=== PATIENT | female | born 1935 | race Caucasian/White ===

== ENCOUNTER 2017-05-05 19:33 | Emergency (ER) | payer MEDICARE ==
[2017-05-05 19:37] VITALS: BP 199/56; PULSE 60; RESP 12; O2SAT 97
--- NOTE | 2017-05-05 19:59 | ED.REPORT ---
HPI-General Illness Date of Service May 05, 2017 ED Provider: Noel Briceño MD The patient is an 82 year old female with a history of hypertension and previous quadruple bypass who presents to the ED from [facility] following an episode of right sided, anterior chest pain that occurred this afternoon. Patient was sent to the ED following a hypertensive episode that was associated with blurry vision, SOB and chest discomfort. Her symptoms have improved upon initial examination. She denies fever, chills, nausea, or vomiting. The patient states that she is "just fine" and does not want to be here. She is accompanied by advanced directive that states DO NOT RESUSCITATE/DO NOT RESUSCITATE and comfort measures. She states that she does not want to be hospitalized, does not want to be in the emergency department, feels fine and that she requested to not be sent here and that she was sent here against her well. Her son arrives shortly after her arrival and confirms her goals of care. She demonstrates insight into her condition and is linear/organized. Nursing Notes Stated Complaint: HYPERTENSION,CHEST PAIN Chief Complaint: Chest Pain Nursing Notes Reviewed: Yes Allergies: Coded Allergies: morphine (Verified Allergy, Unknown, 05/05/17) Uncoded Allergies: HORSE EQUINE (Allergy, Unknown, 05/05/17) General Time Seen by MD: 19:58 Chief Complaint Chest pain Hx Obtained From: Patient Arrived By: Walk-in Sudden in Onset?: No Onset Occurred: 1 - 4 hours ago Symptom Duration: Since onset Location: : Chest Quality: Painful Radiation: : Does not radiate Severity: Current: Mild Severity: Maximum: Moderate Associated with: Reports: Chest pain, Shortness of breath Pertinent Negative: Pt denies other symptoms Recent Healthcare: No recent doctor visit, No recent hospitalization Past Medical History Past Medical History Notes: DNR/DNI Comfort Care measures only Past Medical History Hypertension Atrial fibrillation Past Surgical History Quadruple bypass Smoking History Unknown if Ever Smoker Social History Lives at [facility] Other Social History: Good social support, Lives in [facility] Ambulatory Status Walker Review of Systems Full Review of Systems Constitutional: Denies: Chills, Fever Respiratory: Reports: Shortness of breath Cardiovascular: Reports: Chest pain GI: Denies: Nausea, Vomiting Neurologic: Reports: Vision change Complete sys rev & neg: except as marked. Physical Exam Vital Signs Vital Signs Date Time Temp Pulse Resp B/P Pulse Ox O2 Delivery O2 Flow Rate FiO2 9/12/17 23:41 52 15 183/56 96 Room Air 05/05/17 22:59 50 16 166/46 94 Room Air 05/05/17 20:27 51 16 175/47 96 Room Air 05/05/17 19:37 36.5 60 12 199/56 97 Initial VS: Reviewed Neck: Supple, Non-tender, Full range of motion Extremities: Vascular intact, Neuro intact, No swelling, No tenderness Skin: Warm, Dry, No cyanosis Neurologic: Alert, Oriented, Nonfocal Psychiatric: Mood/affect normal, Behavior normal, Normal thought content General/Constitutional: Awake, Alert, No acute distress Head / Eyes: Atraumatic, Normocephalic, PERRL Respiratory / Chest: Atraumatic, Breath sounds NL, Breath sounds = bilat, No respiratory distress Chest Wall / Ribs: Positive: Chest tender upper R (Palpable tenderness that reproduces the pt's pain) Well healed sternotomy scar Cardiovascular: Heart rate NL, Heart sounds NL, No gallop, No murmurs, No rubs , Peripheral circulation NL, Pulses = bilaterally Heart Rate / Rhythm: Positive: Irreg irregular rhythm Abdomen: Atraumatic, Soft, Non-tender, No distention Colostomy bag in place Interpretation & Diagnostics Lab Results Interpretation Result Diagram: 05/05/17214305/05/172143 Test 05/05/17 19:59 05/05/17 21:44 Hold Urine Received (Received) White Blood Count 7.2th/mm3 (3.8-10.1) Red Blood Count 4.16mil/mm3 (3.90-5.20) Hemoglobin 11.5g/dL (12.0-15.6) Hematocrit 35.3% (35.0-46.0) Mean Corpuscular Volume 84.9fL (81-100) Mean Corpuscular Hemoglobin 27.6pg (27.0-35.0) Mean Corpuscular Hemoglobin Concent 32.6% (32.0-37.0) Red Cell Distribution Width 14.9% (12.3-15.4) Platelet Count 193bil/L (150-400) Neutrophils (%) (Auto) 58.0% (40-74) Lymphocytes (%) (Auto) 26.4% (14-46) Monocytes (%) (Auto) 10.1% (4-12) Eosinophils (%) (Auto) 4.7% (0-5) Basophils (%) (Auto) 0.7% (0-3) Prothrombin Time 18.9sec (8.1-12.5) Prothromb Time International Ratio 1.75ratio Sodium Level 133mEq/L (134-144) Potassium Level 3.9mEq/L (3.5-5.2) Chloride Level 96mEq/L (97-108) Carbon Dioxide Level 23mmol/L (18-29) Blood Urea Nitrogen 18mg/dL (8-27) Creatinine 0.64mg/dL (0.57-1.00) Estimat Glomerular Filtration Rate 127mL/min (>59) Glucose Level 129mg/dL (60-99) Calcium Level 8.0mg/dL (8.5-10.1) Magnesium Level 1.6mg/dL (1.6-2.6) Total Bilirubin 0.2mg/dL (0.0-1.2) Aspartate Amino Transf (AST/SGOT) 18U/L (0-50) Alanine Aminotransferase (ALT/SGPT) 11U/L (0-32) Alkaline Phosphatase 79U/L (25-165) Troponin T 0.028ug/L (0.0-0.011) Total Protein 6.5g/dL (6.4-8.4) Albumin 3.2g/dL (3.4-5.0) Hold Young Top Tube Received (Received) ECG Interpretation ECG Interpretation: Atrial fibrillation Rate 56 bpm normal axis Nonspecific intraventrcular conduction delay T wave inversions in V1 & V2 Leads 3 - bifacial appearing wave Time: 20:59 Interpreted by: ED physician X-Ray Chest Interpretation Chest Xray Interpretation: IMPRESSION: Cardiomegaly and mild interstitial prominence suggesting fluid overload. Dictated by: Maricruz Webb M.D. on 05/05/2017 at 21:30 Interpretation / Wet Read by: Interpret - Radiologist Re-Eval/Medical Decision Med Decision/Clinical Course The patient is an 82 year old female with a history of hypertension and previous quadruple bypass who presents to the ED from [facility] following an episode of right sided, anterior chest pain that occurred this afternoon. Patient was sent to the ED following a hypertensive episode that was associated with blurry vision, SOB and chest discomfort. Her symptoms have improved upon initial examination. She denies fever, chills, nausea, or vomiting. The patient states that she is "just fine" and does not want to be here. She is accompanied by advanced directive that states DO NOT RESUSCITATE/DO NOT RESUSCITATE and comfort measures. She states that she does not want to be hospitalized, does not want to be in the emergency department, feels fine and that she requested to not be sent here and that she was sent here against her well. Her son arrives shortly after her arrival and confirms her goals of care. She demonstrates insight into her condition and is linear/organized. Upon arrival in the emergency department the patient was given 324 mg Aspirin EKG Atrial fibrillation Rate 56 bpm normal axis Nonspecific intraventrcular conduction delay T wave inversions in V1 & V2 Leads 3 - bifphasic appearing t wave Chest X-ray IMPRESSION: Cardiomegaly and mild interstitial prominence suggesting fluid overload. LABS CBC unremarkable INR - 1.75 PT 18.9 Na - 133 Trop elevated 0.028 The above findings were discussed with the patient as well as her son. They were given option to be admitted to the hospital for further workup of acute coronary syndrome in the setting of elevated troponin as well as evidence of cardiomegaly and mild fluid overload on her chest x-ray. Patient continued to state that she felt completely fine though she was noted at times to be bradycardic with a heart rate in the 50s. I reviewed with the patient that should her symptoms be due to evolving acute coronary syndrome/MT but this could result in severe illness/. It is not in-line with the patient's goals of care to be admitted to the hospital or undergo any aggressive workup or intervention. Discussed with the patient as well as her son and they both opted to have her sent back to [facility]. She was discharged in stable condition stating that she felt comfortable" just fine". She is advised to come right back to the emergency room should she change her mind and desire further workup/management should she develop any new/concerning symptoms for which she would like medical treatment. Time of Eval: 20:56 Re-Evaluation/Progress Note: Would like further testing to see if she is experiencing MT. Time of Eval: 23:10 Re-Evaluation/Progress Note: Declines admission or further work-up. Patient condition is re-evaluated. She is informed of her current results. All questions about the intended treatment plan are addressed. Patient understands and agrees with the plan. She is requesting discharge. Counseled Regarding: Diagnosis, Lab results, Need for follow-up, When/why to return to ED Discharge & Departure Primary Impression: Elevated troponin Additional Impressions: Chest pain Chest pain type: unspecified Qualified Code: R07.9 - Chest pain, unspecified Pulmonary edema Chronicity: acute Qualified Code: J81.0 - Acute pulmonary edema Hyponatremia Bradycardia Disposition: Home Discharge Condition All VS Reviewed: Yes Condition: Improved Patient Instructions: Chest Pain (ED) Additional Instructions: Thank you for seeking care at emergency room. Your work-uo today was inconclusive and your Troponin today was elevated. This means that I cannot definitively rule out that you are having a heart attack. You refused further work-up and admission at this time. Continue to take home medications as directed including 1 baby aspirin per day. If you change your mind about further workup or you begin to experience any new or worsening symptoms, please return to the emergency department Thank you for letting us partake in your care today. Referrals: Anitra Salgado MD Scribe Attestation Portions of this note were transcribed by Farhan Pena. I, Dr. Briceño, personally performed the history, physical exam and medical decision-making; I reviewed and confirmed the accuracy of the information in the transcribed note. Signed by: Farhan Pena, 05/05/17. Noel Briceño MD May 05, 2017 19:59 FARHAN PENA May 05, 2017 20:45
[2017-05-05 20:27] VITALS: BP 175/47; PULSE 51; RESP 16; O2SAT 96
--- NOTE | 2017-05-05 21:33 | DRSVH ---
PROCEDURE: X-RAY CHEST, TWO VIEWS ([id number]) INDICATIONS: cp, sob TECHNIQUE: 2 views of the chest were acquired. COMPARISON: None. FINDINGS: Surgical changes and devices: Patient is status post median sternotomy and CABG. Lumbar fixation hard corey is partially visualized. Lungs and pleura: There are mild interstitial opacities. No pleural effusion or pneumothorax. Mediastinum: Atheromatous calcification is present at the aortic arch. The heart is enlarged. Bones and chest wall: No suspicious bony abnormalities. Soft tissues appear unremarkable. IMPRESSION: Cardiomegaly and mild interstitial prominence suggesting fluid overload. Dictated by: Maricruz Webb M.D. on 05/05/2017 at 21:30 Approved by: Maricruz Webb M.D. on 05/05/2017 at 21:31
[2017-05-05 21:51] LABS: BASOPHILS % (AUTO) 0.7 % (0-3); EOSINOPHILS % (AUTO) 4.7 % (0-5); MONOCYTES % (AUTO) 10.1 % (4-12); Mean Corpuscular Hemoglobin 27.6 pg (27.0-35.0); Mean Corpuscular Volume 84.9 fL (81-100); Platelet Count 193 bil/L (150-400)
[2017-05-05 22:08] LABS: INR 1.75 ratio
[2017-05-05 22:13] LABS: TROPONIN T 0.028 ug/L (0.0-0.011)
[2017-05-05 22:24] LABS: Magnesium 1.6 mg/dL (1.6-2.6)
[2017-05-05 22:59] VITALS: BP 166/46; PULSE 50; RESP 16; O2SAT 94
[2017-05-05 23:41] VITALS: BP 183/56; PULSE 52; RESP 15; O2SAT 96
== END 2017-05-06 00:05 | disposition home or self-care (01) ==
LOC: EDBD 19:33 → SED 19:33
DX: R77.8 Other specified abnormalities of plasma proteins (principal); J81.0 Acute pulmonary edema; E87.1 Hypo-osmolality and hyponatremia; R07.89 Other chest pain; R00.1 Bradycardia, unspecified; I11.9 Hypertensive heart disease without heart failure; I48.91 Unspecified atrial fibrillation; Z66 Do not resuscitate; Z98.890 Other specified postprocedural states; Z88.5 Allergy status to narcotic agent